=== PATIENT | female | born 1960 | race Caucasian/White ===

== ENCOUNTER 2018-01-31 02:18 | Inpatient (IN) | payer OTHER ==
[~2018-01-31] VITALS: Ht 162.6 cm; Wt 99.8 kg
[~2018-01-31 02:18] MED LIST: CALCIUM 500 +1 EAC5 PO; LOSARTAN POTAS100 MG PO; SYNTHROID0.137 MG PO; VITAMIN B12-FO1 EACH; VITAMIN D1000 UNIT PO
--- NOTE | 2018-01-31 12:22 | Operative Report ---
Operative/Inv Procedure Report Surgery Date: 01/31/18 Name of Procedure: Robotic laparoscopic vertical sleeve gastrectomy Pre-Operative Diagnosis: Morbid obesity, hypertension Post-Operative Diagnosis: Same Estimated Blood Loss: less than 20 mL Surgeon/Human Resources Benefits Manager: Carolyn GUTIERREZ,Berny Kulkarni PA-C Anesthesia: general endotracheal tube, block Implants: Lactated Ringer's Urine Output: na Drains: none Specimens: Portion of the stomach Complications: None Condition: Stable Operative Indication: Please see admitting history and physical Operative/Procedure Note Note: After informed consent and proper identification the patient was taken in the operating room placed on the operating room table supine position. Sequential compression stockings were applied. Anesthesia placed a tap block and patient underwent a general endotracheal anesthetic. The abdomen was prepped and draped in normal sterile fashion. We placed 3 trochars after entering the abdomen with a 5 mm Optiview trocar just to the left lateral umbilicus. A 12 mm trocar was then placed to the right of the umbilicus and in the same horizontal line additional 12 trocar and a trocar and then the 5 trocar was changed out to a 8 trocar. The robot was docked with the camera and arm 2 and targeted to the stomach. We then placed the other arms of the robot placing the vessel single and arm 3 a grasper and arm 1 and a grasper and arm for we had anesthesia decompress the stomach with an orogastric tube and then remove it with a vessel sealer I divided the vascular attachments along the greater curvature of the stomach opposite the angularis up to the angle his and retracted the fundus of the stomach medially off of the left love. We had excellent visualization of the retrogastric space including the pancreas spleen and splenic vessels and were careful not to injure any of these structures. We then began to create the sleeve by having anesthesia place 38 Yi bougie into the stomach and using this as a guide we began with the robotic stapler and stapled 3 green load cartridges the first and third with seam guard the second one we had difficulty with the seam guard bunching up and removed. Prior to firing the stapler we then fired 3 blue load cartridges seam guard which was just shy disconnecting the remnant from the sleeve so we fired an additional stapler to divide the remaining 2 mm a tissue using a blue without seam guard. We now completely transected the remnant stomach from the sleeve there is no actively bleeding along the staple line. We then undocked the robot a 1 up to the table removed the liver retractor anesthesia remove the bougie removed the remnant stomach and a 10 Endo Catch bag. Removed all trochars we closed skin incisions with 4-0 Monocryl subcuticular stitches and dry sterile dressings were placed the patient tolerated the procedure without complications was extubated and taken the recovery room in stable condition Findings: Smooth liver no significant hiatal hernia Discharge Disposition: PACU
--- NOTE | 2018-01-31 13:51 | Admission Core Measures ---
Acute Coronary Syndrome (CM) ACS Core Measures Acute Coronary Syndrome Diagnosis No Congestive Heart Failure (NEW) CHF Core Measures Congestive Heart Failure Diagnosis No Cerebrovascular Accident CVA Core Measures CVA/TIA Diagnosis No Venous Thromboembolism VTE Core Margaret (View Protocol) VTE Risk Factors No risk factors No Mechanical VTE Prophylaxis d/t N/A MechProphylax Ordered No VTE Pharm Prophylaxis d/t NA PharmProphylax ordered Problem List As ranked by this Provider includes Assessment & Plan 1. Morbid obesity 2. S/P laparoscopic sleeve gastrectomy HOME MEDS Home Med List Calcium Carbonate/Vitamin D3 (Calcium 500 + D Tablet) 500 MG-400 TABLET 1 TAB PO BID SUPPLEMENT (Reported) Cholecalciferol (Vitamin D3) (Vitamin D) 1,000 UNIT TABLET 1 TAB PO DAILY SUPPLEMENT (Reported) Levothyroxine Sodium (Synthroid) 0.137 MG TAB 1 TAB PO DAILY AC THYROID ( Reported) Losartan Potassium 100 MG TABLET 1 TAB PO DAILY BP (Reported)
--- NOTE | 2018-01-31 13:54 | Surg Short-stay <48hrs Dis Sum ---
See Addendum Visit Information Visit Dates Admission Date: 01/31/18 Discharge Date: 02/01/18 Surgical Short Stay DC Summary Admission Diagnosis: Morbid Obesity Final Diagnosis: same Procedure(s): Robotic/Laparoscopic Sleeve Gastrectomy Summary/Significant Findings: This is a 57 yo female who presented electively for Robotic/Laparoscopic Sleeve Gastrectomy. Patient underwent the aforementioned procedure without complication. Postoperative course was uncomplicated. POD#1 she underwent an UGI which was negative. She tolerated a Bariatric Stage 1 diet and was discharged on this. By time of discharge patient was ambulating, voiding and pain was well controlled with oral analgesia. Plan is for the patient to follow up with Dr. Leon as an outpatient in 1-2 weeks. Full details of her hospital course, operative report and discharge instructions can be found in her electronic chart. Condition at Discharge: Stable Discharge Disposition: home or self care Discharge instructions provided to patient/family: Yes Post discharge follow-up plan: as above Copies to: Carolyn GUTIERREZ,Berny iLve
--- NOTE | 2018-01-31 14:00 | Patient Discharge Instructions ---
Discharge Instructions General Discharge Information You were seen/treated for: Morbid Obesity You had these procedures: Robotic/Laparoscopic Sleeve Gastrectomy Watch for these problems: Redness, swelling, unusual drainage, increased pain, nausea, vomiting, excessive diarrhea, or no bowel movements Do not soak the wound: Yes Daily wet to dry dressings: No No bath, but you may shower: Yes Other wound care: Ok to shower, let soapy water run over the incisions, don't scrub the incisions, glue will flake off on its own Special Instructions: Call the office with any other problems, questions or concerns Diet Continue normal diet: No Recommended Diet: Bariatric Additional DIET Information: Please follow your Bariatric Diet Program, see paperwork from the office for details Activity Full Activity/No Limits: No Activity Self Limited: Yes Pounds, do NOT lift more than: 10 Activity Limited to: Weight bear as tolerated Acute Coronary Syndrome Inclusion Criteria At DC or during hospital stay patient has or had the following: ACS DIAGNOSIS No Discharge Core Measures Meds if any: Prescribed or Continued at Discharge Meds if any: NOT Prescribed or Continued at Discharge Congestive Heart Failure Inclusion Criteria At DC or during hospital stay patient has or had the following: CHF DIAGNOSIS No Discharge Core Measures Meds if any: Prescribed or Continued at Discharge Meds if any: NOT Prescribed or Continued at Discharge Cerebrovascular accident Inclusion Criteria At DC or during hospital stay patient has or had the following: CVA/TIA Diagnosis No Discharge Core Measures Meds if any: Prescribed or Continued at Discharge Meds if any: NOT Prescribed or Continued at Discharge Venous thromboembolism Inclusion Criteria VTE Diagnosis No VTE Type NONE VTE Confirmed by (Test) NONE Discharge Core Measures - Per Current guidelines, there needs to be overlap - treatment for the first 5 days of Warfarin therapy. - If discharged on Warfarin prior to 5 days of - overlap therapy, the patient will need to be - assessed for post discharge needs including - *Post discharge parental anticoagulation - *Warfarin and/or parental anticoagulation education - *Follow up date to check INR post discharge At least 5 days overlap therapy as Inpatient No Meds if any: Prescribed or Continued at Discharge Note: Overlap Therapy is Warfarin and Anticoagulant Meds if any: NOT Prescribed or Continued at Discharge
--- NOTE | 2018-01-31 15:07 | PN- Bariatrics ---
Subjective Subjective: Postop check: Patient feeling well, very mild epigastric discomfort. She has been up and ambulatory, she has urinated, she denies any nausea or vomiting. Objective Vital Signs and I&Os Vital signs stable, afebrile Physical Exam: Well-developed well-nourished no apparent distress. HEENT: Atraumatic, extraocular motion intact Neck: Supple, no lymphadenopathy Heart: Regular rate and rhythm Respiratory: No respiratory distress clear to auscultation bilateral, Abdomen: Abdominal incisions are clean dry and intact, Dermabond glue applied. Minimal tenderness in the epigastric region. No peritoneal signs. Normal bowel sounds Extremities: No edema, no calf pain Neuro: Alert and oriented x3 Psych: Mood affect normal, normal memory normal judgment. Skin: Warm and dry, no rash on exposed skin Assessment/Plan Assessment/Plan Postop day #0 status post robotic laparoscopic vertical sleeve gastrectomy Bariatric stage I diet N.p.o. after midnight for possible upper GI series in the morning Antiemetics as needed Pain medication as needed Out of bed, ambulate IV fluids Monitor I's and O's PPI Simethicon prn hold antihypertensives Core Measures Venous Thromboembolism VTE Risk Factors No risk factors No Mechanical VTE Prophylaxis d/t N/A MechProphylax Ordered No VTE Pharm Prophylaxis d/t NA PharmProphylax ordered
[2018-01-31 16:44] VITALS: BP 170/110
[2018-01-31 22:03] VITALS: BP 132/80
[2018-02-01 06:32] VITALS: BP 140/82
--- NOTE | 2018-02-01 07:41 | PN- Bariatrics ---
See Addendum Subjective Subjective: Reports some nausea, better after zofran. NPO since midnight. Out of bed without difficulty. No dizziness. No shortness of breath. No chest pains. Voiding well. Objective Vital Signs and I&Os Vital Signs Date Time Temp Pulse Resp B/P B/P Pulse O2 O2 Flow FiO2 Mean Ox Delivery Rate 02/01 0632 98.9 85 20 140/82 97 01/31 2203 98.3 98 20 132/80 95 Room Air 01/31 2002 77 170/110 01/31 164 98.0 77 18 170/110 97 Nasal 2.0L Cannula 02/01 1644 97 Nasal 2.0L Cannula Intake & Output 02/01 0802/01 0000 01/31 1600 01/31 0801/31 0000 01/30 1600 Intake Total Output Total 850 Balance -850 Output, Urine 850 Patient 220 lb Weight Weight Reported by Patient Measurement Method Physical Exam: General - alert & oriented x 3. comfortable. no acute distress. Lungs - clear bilaterally. no w/r/r. Cardiac - s1s2. reg. Abdomen - soft. incisions well approximated with skin glue. no drains. expected shalonda-incisional tenderness. Extremities - warm bilaterally. no c/c/e. calves soft and nontender b/l. athrombics active. Current Medications: Current Medications Sig/Bg Start time Last Medication Dose Route Stop Time Status Admin Acetaminophen 1,000 MG Q6H 02/01 0100 AC 02/01 N/A 1 UNIT IV 02/01 1314 0717 Acetaminophen 1,000 MG Q6H 01/31 1400 DC 01/31 N/A 1 UNIT IV 02/01 0814 1912 Cefazolin Sodium 2,000 MG ONCE 01/31 0000 DC IV 01/31 2359 Dexamethasone 10 MG ONCE 01/31 0000 DC IV 01/31 2359 Dextrose/Sodium 1,000 ML Q8H 02/01 0745 AC Chloride IV Diphenhydramine HCl 50 MG Q6P PRN 01/31 1400 AC IV Fentanyl Citrate 100 MCG .STK-MED ONE 01/31 1019 DC IM 01/31 1020 Heparin Sodium 5,000 UNIT Q8H 02/01 0400 AC 02/01 (Porcine) SC 0421 Heparin Sodium 5,000 UNIT Q8 01/31 1400 DC 01/31 (Porcine) SC 1958 Heparin Sodium 5,000 UNIT ONCE 01/31 0000 DC (Porcine) SC 01/31 2359 Hydralazine HCl 10 MG ONCE ONE 01/31 191 DC 01/31 IV 01/31 1912001 Hydrocodone Bitart/ 15 ML Q6P PRN 01/31 1400 AC Acetaminophen PO Hydromorphone HCl 2 MG .STK-MED ONE 01/31 1533 DC IM 01/31 1534 Hydromorphone HCl 2 MG .STK-MED ONE 01/31 1353 DC IM 01/31 1354 Hydromorphone HCl 2 MG .STK-MED ONE 01/31 1321 DC IM 01/31 1322 Hydromorphone HCl 2 MG .STK-MED ONE 01/31 1302 DC IM 01/31 1303 Ketorolac 15 MG Q6H 02/01 0100 AC 02/01 Tromethamine IV 02/01 1901 0613 Ketorolac 15 MG Q6 01/31 1800 DC 01/31 Tromethamine IV 02/01 1801 1909 Lactated Ringer's 1,000 ML Q8H 01/31 1245 DC 02/01 IV 0019 Levothyroxine Sodium 0.137 MG DAILY AC 02/01 0700 AC 02/01 PO 0613 Losartan Potassium 100 MG DAILY 02/01 0900 CAN PO Losartan Potassium 100 MG DAILY 02/01 0900 UNVr PO Midazolam HCl 2 MG .STK-MED ONE 01/31 1019 DC IM 01/31 1020 Morphine Sulfate 2 MG Q3P PRN 01/31 1245 AC IV Morphine Sulfate 4 MG Q3P PRN 01/31 1245 AC IV Ondansetron HCl 4 MG Q6P PRN 01/31 1245 AC 02/01 IV 0616 Pantoprazole Sodium 40 MG DAILY 02/01 0900 AC IV Simethicone 80 MG TID 01/31 1400 AC 02/01 PO 0613 Results Last 48 Hours of Labs: Laboratory Tests 02/01 655 Chemistry Sodium Pending Potassium Pending Chloride Pending Carbon Dioxide Pending Anion Gap Pending BUN Pending Creatinine Pending BUN/Creatinine Ratio Pending Hematology CBC w Diff Pending WBC Pending RBC Pending Hgb Pending Hct Pending MCV Pending MCH Pending MCHC Pending RDW Pending Plt Count Pending MPV Pending Assessment/Plan Assessment/Plan This 57 year old female is POD#1 s/p robotic laparoscopic vertical sleeve gastrectomy for hx morbid obesity and hypertension currently npo / ivf anti-emetics as needed for nausea pain controlled f/u labs and upper gi study resume stg 1 diet if ugi neg resume losartan 100 mg daily for htn hep sc - dvt ppx protonix - gi ppx oob/ambulation d/c planning, today vs tomorrow will d/w Core Measures Venous Thromboembolism VTE Risk Factors No risk factors No Mechanical VTE Prophylaxis d/t N/A MechProphylax Ordered No VTE Pharm Prophylaxis d/t NA PharmProphylax ordered
[2018-02-01] MEDS ORDERED: HYCET 7.5 MG-3473 ML PO (07:47)
[2018-02-01] MEDS ORDERED: PROTONIX40 M3 PO (07:47)
[2018-02-01 08:06] LABS: ABSOLUTE BASOPHIL COUNT 0 /CUMM (0.0-0.2); ABSOLUTE EOSINOPHIL COUNT 0 /CUMM (0.0-0.7); ABSOLUTE GRANULOCYTE CT 6.9 /CUMM (1.4-6.5); ABSOLUTE LYMPH COUNT 0.9 /CUMM (1.2-3.4); ABSOLUTE MONOCYTE COUNT 0.7 /CUMM (0.10-0.60); BASOPHIL % 0.1 % (0.0-2.0); EOSINOPHIL % 0 % (0-5); HEMATOCRIT 43.7 % (37-47); MEAN CORPUSCULAR HGB 30.4 PG (27.0-31.0); MEAN CORPUSCULAR VOLUME 89.3 FL (81.0-99.0); MEAN PLATELET VOLUME 8.3 FL (7.4-10.4); PLATELET COUNT 201 /CUMM (130-400); RBC DISTRIBUTION WIDTH 12.5 % (11.5-14.5); RED BLOOD CELL CT 4.89 /CUMM (4.20-5.40); WHITE BLOOD CELL COUNT 8.5 /CUMM (4.8-10.8)
[2018-02-01 08:09] LABS: GRANULOCYTE % 80.6 % (42.2-75.2)
[2018-02-01 14:13] VITALS: BP 138/94
--- NOTE | 2018-02-01 14:26 | RADIOLOGY REPORT ---
EXAMINATION: FL SINGLE-CONTRAST UPPER GI SERIES WITH KUB CLINICAL INFORMATION: Status post sleeve gastrectomy. Assess for leak or obstruction. COMPARISON: None. TECHNIQUE: Examination performed with oral Gastroview 30 mL. Multiple fluoroscopic loop images and spot radiographs were obtained. FINDINGS: Preliminary AP radiograph demonstrates a left upper quadrant staple line related to sleeve gastrectomy. The patient ingested water-soluble contrast without difficulty. There is no evidence of distal esophageal dilatation and contrast passes freely into the stomach. There is mild prominence of the proximal stomach, with mild persistent retention of contrast. However, contrast flows well into the mid stomach. There is no gastroesophageal reflux. There is no evidence of leak or obstruction. There is free flow of contrast through the pylorus into the duodenal sweep. FLUOROSCOPY TIME: 2 minutes and 17 seconds. Number of images: 13. IMPRESSION: 1. Upper GI series status post status post sleeve gastrectomy demonstrates no evidence of leak or obstruction. The proximal stomach is mildly prominent. No gastroesophageal reflux was demonstrated.
[2018-02-01 23:20] VITALS: BP 122/81
[2018-02-02 06:40] VITALS: BP 134/98
--- NOTE | 2018-02-02 07:36 | PN- General Surgery ---
Subjective Subjective: Patient doing well. Reports minimal abdominal discomfort which is well controlled with current analgesia. Tolerating jesus clears, ambulating and voiding without any difficulty. Denies any other issues or complaints. No other concerns per nursing. Objective Vital Signs and I&Os Vital Signs Date Time Temp Pulse Resp B/P B/P Pulse O2 O2 Flow FiO2 Mean Ox Delivery Rate 02/02 0640 98.1 80 20 134/98 97 Room Air 02/01 2320 97.7 71 20 122/81 98 Room Air 02/01 1413 98.4 76 20 138/94 94 Room Air 02/01 1105 Room Air Room Air 02/01 0839 90 142/92 Intake & Output 02/02 0802/02 0000 02/01 1600 02/01 0800 02/01 0000 01/31 1600 Intake Total 1000 058 473 9267 Output Total 1200 125 620 5742 Balance -200 250 40 -45 Intake, IV 1000 252 565 2510 Intake, Oral 90 90 Number 0 Bowel Movements Output, Urine 1200 121 513 1835 Patient 220 lb Weight Weight Reported by Patient Measurement Method Physical Exam: General: A, A, NAD Abdomen: Obese, soft, nt, nd, incisions c/d/i with glue in place, no surrounding edema, erythema or ecchymosis Extremities: No clubbing, cyanosis or edema Current Medications: Current Medications Sig/Bg Start time Last Medication Dose Route Stop Time Status Admin Acetaminophen 1,000 MG Q6H 02/01 0100 DC 02/01 N/A 1 UNIT IV 02/01 1314 1217 Dextrose/Sodium 1,000 ML Q8H 02/01 0745 02/02 Chloride IV 0300 Diphenhydramine HCl 50 MG Q6P PRN 01/31 1400 AC IV Heparin Sodium 5,000 UNIT Q8H 02/01 0400 02/02 (Porcine) SC 0500 Hydrocodone Bitart/ 15 ML Q6P PRN / 1400 AC 02/02 Acetaminophen PO 0459 Ketorolac 15 MG Q6H 02/01 0100 DC 02/01 Tromethamine IV 02/01 1901 1906 Lactated Ringer's 1,000 ML Q8H / 1245 DC 02/01 IV 0019 Levothyroxine Sodium 0.137 MG DAILY AC 02/01 0700 AC 02/02 PO 0500 Losartan Potassium 100 MG DAILY 02/01 0900 AC 02/01 PO 0839 Morphine Sulfate 2 MG Q3P PRN 01/31 1245 AC IV Morphine Sulfate 4 MG Q3P PRN 01/31 1245 AC IV Ondansetron HCl 4 MG Q6P PRN 01/31 1245 AC 02/01 IV 0616 Pantoprazole Sodium 40 MG DAILY 02/01 0900 AC 02/01 IV 0838 Patient Medication 1 ED ONE ONE 02/01 1100 DC 02/01 Teaching ED 02/01 1101 1854 Simethicone 80 MG TID 01/31 1400 AC 02/01 PO 2119 Results Last 48 Hours of Labs: Laboratory Tests 02/01 06 Chemistry Sodium (137 - 145 mmol/L) 142 Potassium (3.5 - 5.1 mmol/L) 4.2 Chloride (98 - 107 mmol/L) 104 Carbon Dioxide (22 - 30 mmol/L) 27 Anion Gap (5 - 16) 11 BUN (7 - 17 mg/dL) 8 Creatinine (0.5 - 1.0 mg/dL) 0.8 Estimated GFR (>60 ml/min) > 60 BUN/Creatinine Ratio (7 - 25 %) 10.0 Hematology CBC w Diff NO MAN DIFF REQ WBC (4.8 - 10.8 /CUMM) 8.5 RBC (4.20 - 5.40 /CUMM) 4.89 Hgb (12.0 - 16.0 G/DL) 14.9 Hct (37 - 47 %) 43.7 MCV (81.0 - 99.0 FL) 89.3 MCH (27.0 - 31.0 PG) 30.4 MCHC (33.0 - 37.0 G/DL) 34.0 RDW (11.5 - 14.5 %) 12.5 Plt Count (130 - 400 /CUMM) 201 MPV (7.4 - 10.4 FL) 8.3 Gran % (42.2 - 75.2 %) 80.6 H Lymphocytes % (20.5 - 51.1 %) 10.5 L Monocytes % (1.7 - 9.3 %) 8.8 Eosinophils % (0 - 5 %) 0 Basophils % (0.0 - 2.0 %) 0.1 Absolute Granulocytes (1.4 - 6.5 /CUMM) 6.9 H Absolute Lymphocytes (1.2 - 3.4 /CUMM) 0.9 L Absolute Monocytes (0.10 - 0.60 /CUMM) 0.7 H Absolute Eosinophils (0.0 - 0.7 /CUMM) 0 Absolute Basophils (0.0 - 0.2 /CUMM) 0 Recent Imaging Studies: UGI 02/01/18: Upper GI series status post status post sleeve gastrectomy demonstrates no evidence of leak or obstruction. The proximal stomach is mildly prominent. No gastroesophageal reflux was demonstrated. Assessment/Plan Assessment/Plan This is a 57 yo female who is POD #2 from Robotic/Laparoscopic Sleeve Gastrectomy Ambulate/IS GI/DVT Px PRN analgesia/antiemetics Continue Bariatric Clears D/C home w/o services today Patient seen and examined w/ Dr. Leon who is in agreement with the plan of care Problem List: 1. Morbid obesity 2. S/P laparoscopic sleeve gastrectomy Core Measures Venous Thromboembolism VTE Risk Factors No risk factors No Mechanical VTE Prophylaxis d/t N/A MechProphylax Ordered No VTE Pharm Prophylaxis d/t NA PharmProphylax ordered
[2018-02-02 07:53] VITALS: BP 134/98
== END 2018-02-02 09:44 | DRG 621 ==
LOC: SDA 02:18 → ENRESERV 15:17 → ENTRNSPT 16:31 → EDTRNSPT 16:32 → EDTRNSPTSTS 16:32 → CMPTRNSPT 16:51 → 2NB 17:17 → ENPENDDIS 02-02 07:40 → 2NB 02-02 09:44
PROVIDERS: Physician Assistant Surgical
PROC: 0DB64Z3 Excision of Stomach, Percutaneous Endoscopic Approach, Vertical (ICD-10-PCS; principal; 2018-01-31)
PROC: 3E0T3BZ Introduction of Anesthetic Agent into Peripheral Nerves and Plexi, Percutaneous Approach (ICD-10-PCS; 2018-01-31)
PROC: 8E0W4CZ Robotic Assisted Procedure of Trunk Region, Percutaneous Endoscopic Approach (ICD-10-PCS; 2018-01-31)
DX: E66.01 Morbid (severe) obesity due to excess calories (principal); Z68.41 Body mass index [BMI] 40.0-44.9, adult; I10 Essential (primary) hypertension; E03.9 Hypothyroidism, unspecified; Z86.73 Personal history of transient ischemic attack (TIA), and cerebral infarction without residual deficits
CPT/HCPCS: 2NBP; 36415; 36592; 74240; 82436; 88307; J0131; J0360; J0690; J1100; J1200; J1644; J2405; J3490; J7042; J7120